=== PATIENT | female | born 1990 | race Caucasian/White ===

== ENCOUNTER 2016-10-31 09:44 | Emergency (ER) | payer SELFPAY ==
[~2016-10-31] VITALS: Ht 160 cm; Wt 63.0 kg
[2016-10-31 09:52] VITALS: Ht 160 cm; Wt 63.0 kg
[2016-10-31] MEDS ORDERED: SOD CHLORIDE 0.9% 1,000 ML IV ONE (11:00)
[2016-10-31] MEDS ORDERED: LORAZEPAM 0.5 MG TAB PO ONE (11:00)
--- NOTE | 2016-10-31 11:25 | RADRPT ---
PROCEDURE: XR Chest. CLINICAL INDICATION: Shortness of breath TECHNIQUE: Single frontal view of the chest was obtained COMPARISON: None FINDINGS: No pleural effusion or pneumothorax. No consolidation. Unremarkable cardiomediastinal silhouette. No acute osseous abnormality. IMPRESSION: No acute cardiopulmonary disease. RPTAT: EE Pancho Arriaza Physician Date Time Electronically viewed and signed by Pancho Arriaza Physician on 10/31/2016 11:25 /
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
== END 2016-10-31 13:15 | disposition home or self-care (01) ==
LOC: FTE 09:44
DX: F41.9 Anxiety disorder, unspecified (principal); R06.02 Shortness of breath
CPT/HCPCS: 71010; 93005; 99284; J7030